=== PATIENT | male | born 1965 | race Caucasian/White ===

== ENCOUNTER 2020-11-30 21:26 | Inpatient (IN) | payer OTHER ==
[~2020-11-30] VITALS: Ht 160 cm; Wt 62.5 kg
[2020-11-30] MEDS ORDERED: METFORMIN HCL1000 MG PO (22:58)
[2020-11-30] MEDS ORDERED: FLOMAX 0.4 MG0.4 MG PO (22:58)
[2020-11-30] MEDS ORDERED: HYDROCODON-ACE1 EAC2 PO (22:59)
[2020-11-30] MEDS ORDERED: GABAPENTIN300 MG PO (22:59)
[2020-11-30] MEDS ORDERED: SEROQUEL100 MG PO (22:59)
[2020-11-30] MEDS ORDERED: EFFEXOR XR75 MG PO (23:21)
[2020-11-30] MEDS ORDERED: CARVEDILOL12.5 MG PO (23:22)
[2020-11-30] MEDS ORDERED: VALSARTAN-HCTZ1 EACH PO (23:22)
[2020-11-30] MEDS ORDERED: GLIPIZIDE ER10 MG PO (23:22)
[2020-11-30] MEDS ORDERED: SYMMETREL 100100 MG PO (23:23)
[2020-11-30] MEDS ORDERED: WELLBUTRIN SR100 MG PO (23:23)
[2020-11-30] MEDS ORDERED: BACLOFEN20 MG PO (23:24)
[2020-11-30] MEDS ORDERED: VENTOLIN HFA 66.7 GM INH (23:24)
[2020-11-30] MEDS ORDERED: ATORVASTATIN CA80 MG PO (23:24)
[2020-11-30] MEDS ORDERED: SYMBICORT 160-1 INHA INH (23:25)
[2020-12-01 05:57] LABS: HEMOGLOBIN 13.2 gm/dl (14.0-17.5); RED BLOOD COUNT 4.16 M/UL (4.20-5.50)
[2020-12-01 06:33] LABS: BUN/CREATININE RATIO 17 (0-10)
[2020-12-01 10:50] LABS: BORDETELLA PARAPERTUSSIS Not Detected (Not Detectd); BORDETELLA PERTUSSIS Not Detected (Not Detectd); CHLAMYDIA PNEUMONIAE Not Detected (Not Detectd); CORONAVIRUS HKU1 Not Detected (Not Detectd); CORONAVIRUS NL63 Not Detected (Not Detectd); CORONAVIRUS OC43 Not Detected (Not Detectd); CORONOAVIRUS 229E Not Detected (Not Detectd); HUMAN METAPNEUMOVIRUS Not Detected (Not Detectd); HUMAN RHINOVIRUS/ENTEROVIRUS Not Detected (Not Detectd); INFLUENZA A Not Detected (Not Detectd); INFLUENZA B Not Detected (Not Detectd); MYCOPLASMA PNEUMONIAE Not Detected (Not Detectd); PARAINFLUENZA VIRUS 1 Not Detected (Not Detectd); PARAINFLUENZA VIRUS 2 Not Detected (Not Detectd); PARAINFLUENZA VIRUS 3 Not Detected (Not Detectd); PARAINFLUENZA VIRUS 4 Not Detected (Not Detectd); RESPIRATORY SYNCYTIAL VIRUS Not Detected (Not Detectd)
[2020-12-01 13:46] LABS: SARS-CoV-2 NOT DETECTED (Not Detectd)
--- NOTE | 2020-12-02 07:12 | NUR ---
PATIENTS OXYGEN SATURATION ON ROOM AIR IS 88%
[2020-12-02 12:35] LABS: HEMOGLOBIN 12.3 gm/dl (14.0-17.5); RED BLOOD COUNT 3.84 M/UL (4.20-5.50); WHITE BLOOD COUNT 7.2 K/UL (4.5-11.0)
[2020-12-02 12:50] LABS: BUN/CREATININE RATIO 21 (0-10)
[2020-12-03 08:31] LABS: HEMOGLOBIN 12.3 gm/dl (14.0-17.5); RED BLOOD COUNT 3.86 M/UL (4.20-5.50); WHITE BLOOD COUNT 5.8 K/UL (4.5-11.0)
[2020-12-03 08:52] LABS: BUN/CREATININE RATIO 18 (0-10)
[2020-12-03 16:09] LABS: ANTI-DSDNA ANTIBODIES 1 IU/mL (0-9)
[2020-12-04 05:30] LABS: HEMOGLOBIN 12.4 gm/dl (14.0-17.5); RED BLOOD COUNT 3.88 M/UL (4.20-5.50)
[2020-12-04 06:18] LABS: BUN/CREATININE RATIO 17 (0-10)
[2020-12-04 10:10] LABS: ORGANISM ID Not indicated. (.); SPECIMEN SOURCE Urine (.); STREPTOCOCCUS PNEUMONIAE AG Negative (Negative)
--- NOTE | 2020-12-04 17:34 | NUR ---
PATIENT REFUSES TO USE INCENTIVE SPIROMETER. HE SAYS IT "HURTS MY LUNGS AND HMY CHEST EVERY TIME I USES IT AND I WILL NOT USE IT NO MATTER WHAT CIRCUMSTANCE" ENCOURAGED PATIENT AND TRIED TO TEACH PATIENT THE EFFECTIVENESS OF THE THERAPY. PATIENT STILL REFUSES.
[2020-12-04 20:10] LABS: ANTIMYELOPEROXIDASE (MPO) ABS <9.0 U/mL (0.0-9.0); ANTIPROTEINASE 3 (PR-3) ABS <3.5 U/mL (0.0-3.5); ATYPICAL PANCA <1:20 titer (Neg:<1:20); CYTOPLASMIC (C-ANCA) <1:20 titer (Neg:<1:20); PERINUCLEAR (P-ANCA) <1:20 titer (Neg:<1:20)
[2020-12-05 04:50] LABS: HEMOGLOBIN 12.8 gm/dl (14.0-17.5); RED BLOOD COUNT 4.04 M/UL (4.20-5.50); WHITE BLOOD COUNT 5.3 K/UL (4.5-11.0)
[2020-12-05 05:04] LABS: BUN/CREATININE RATIO 18 (0-10)
--- NOTE | 2020-12-05 14:14 | NUR ---
AT 1400 PATIENTS SHOWS UP TO VISIT PATIENT. SHE IS CONCERNED ABOUT THE PROGRESS OF THE PATIENTS CARE REQUESTING TO SPEAK TO THE METER INSTALLER AND REMOVER AND THE DOCTOR. I CALLED DR. MAHONEY TO COME SPEAK TO HER. DR. PRIEST JUST SO HAPPENS TO BE ROUNDING AT THIS SAME MOMENT AND BETTER EXPLAINS THINGS FOR THE . DR. MAHONEY COMES SHORTLY AFTER AND ALSO EXPLAINS THE PATIENTS CARE PLAN TO HER. METER INSTALLER AND REMOVER IS CALLED FOR CONCERNS OF THE NOT ABLE TO BE ADRESSED BY MD. METER INSTALLER AND REMOVER COMES TO THE FLOOR TO SEE THE PATIENT AND HIS . THEY ARE SATISIFIED WITH THE ANSWERS THEY HAVE RECEIVED SO FAR.
[2020-12-06 04:02] LABS: HEMOGLOBIN 13.5 gm/dl (14.0-17.5); RED BLOOD COUNT 4.22 M/UL (4.20-5.50); WHITE BLOOD COUNT 6.4 K/UL (4.5-11.0)
[2020-12-06 04:30] LABS: BUN/CREATININE RATIO 15 (0-10)
[2020-12-06] MEDS ORDERED: OMNICEF 300 MG300 MG PO (10:17)
--- NOTE | 2020-12-06 12:12 | NUR ---
STAMP COLLECTOR CALLED ME ASKING ME TO ASK DR. MAHONEY TO SEND THE PATIENT HOME WITH A MEDROL DOSE PACK. RELAYED THIS INFORMATION TO DR. MAHONEY. HE WILL BE IN TOUCH WITH PULMONOLIGIST TO DISCUSS THE ORDER.
[2020-12-09 10:14] LABS: ASPERGILLUS FUMAGATUS IGG Negative (Negative); AUREOBASIDIUM PULLULANS IGG Negative (Negative); MICROPOLYSPORA FAENI IGG Negative (Negative); PIGEON SERUM IGG Negative (Negative); THERMOACTINOMYCES SACCHARI IGG Negative (Negative); THERMOACTINOMYCES VULGARIS IGG Negative (Negative)
== END 2020-12-06 13:44 | disposition home or self-care (01) | DRG 871 ==
LOC: PROG CARE 21:26 → M/S 22:57 → PROG CARE 22:57 → M/S 12-02 20:30
PROVIDERS: Internal Medicine; Internal Medicine Pulmonary Disease; ADMIT Internal Medicine
DX: A41.9 Sepsis, unspecified organism (principal); J18.9 Pneumonia, unspecified organism; J15.0 Pneumonia due to Klebsiella pneumoniae; J96.01 Acute respiratory failure with hypoxia; I21.A1 Myocardial infarction type 2; J44.1 Chronic obstructive pulmonary disease with (acute) exacerbation; J44.0 Chronic obstructive pulmonary disease with (acute) lower respiratory infection; Z20.822 Contact with and (suspected) exposure to COVID-19; F41.9 Anxiety disorder, unspecified; N40.0 Benign prostatic hyperplasia without lower urinary tract symptoms; I10 Essential (primary) hypertension; E78.5 Hyperlipidemia, unspecified; K74.60 Unspecified cirrhosis of liver; F32.9 Major depressive disorder, single episode, unspecified; G89.29 Other chronic pain; I25.10 Atherosclerotic heart disease of native coronary artery without angina pectoris; D69.6 Thrombocytopenia, unspecified; E11.65 Type 2 diabetes mellitus with hyperglycemia; R07.89 Other chest pain; M54.5 Low back pain; G20 Parkinson's disease; F12.90 Cannabis use, unspecified, uncomplicated; R77.8 Other specified abnormalities of plasma proteins; Z79.891 Long term (current) use of opiate analgesic; Z72.0 Tobacco use; Z79.4 Long term (current) use of insulin; Z86.19 Personal history of other infectious and parasitic diseases; Z90.49 Acquired absence of other specified parts of digestive tract; Z90.89 Acquired absence of other organs; Z88.6 Allergy status to analgesic agent; Z82.49 Family history of ischemic heart disease and other diseases of the circulatory system
CPT/HCPCS: ECHO; 36415; 71045; 71046; 71275; 80048; 80053; 80202; 82436; 82550; 82553; 82570; 82962; 83036; 83520; 83540; 83550; 83615; 83735; 83880; 84100; 84132; 84133; 84156; 84300; 84484; 85025; 86038; 86140; 86225; 86256; 86331; 86602; 86609; 86671; 86738; 87040; 87070; 87077; 87186; 87205; 87278; 87633; 87899; 93005; 93306; 94640; 94664; 94760; J0456; J0696; J1650; J1756; J1940; J2920; J3370; J7030; J7070; Q9967; U0002